=== PATIENT | female | born 1950 | race Two or more races ===

== ENCOUNTER 2021-03-24 18:32 | Emergency (ER) | payer OTHER ==
[2021-03-24 20:50] LABS: Absolute Lymphocytes (CBC) 1.1 K/uL (0.7-4.9); Hematocrit 42.6 % (36.0-45.0); Lymphocytes % 31.6 % (15.3-44.8); MPV 6.7 fL (7.6-11.3)
[2021-03-24 21:15] LABS: ALT/SGPT 23 U/L (12-78); AST/SGOT 22 U/L (15-37); Albumin 3.6 g/dL (3.4-5.0); Alkaline Phosphatase 68 U/L (45-117); BUN Blood Urea Nitrogen 12 mg/dL (7-18); Bicarbonate 27 mmol/L (21-32); Bilirubin Direct < 0.1 mg/dL (0-0.2); Bilirubin Total 0.4 mg/dL (0.2-1.0); Glucose Level 123 mg/dL (74-106); Lipase 87 U/L (73-393); Potassium 3.5 mmol/L (3.5-5.1); Protein, Total 8.4 g/dL (6.4-8.2); Sodium Level 130 mmol/L (136-145)
[2021-03-25] MEDS ORDERED: NA CHLORIDE 0.9% 500 ML ONE (00:35)
[2021-03-25] MEDS ORDERED: ONDANSETRON 4 MG/2 ML VIAL ONE (00:35)
--- NOTE | 2021-03-25 01:42 | EDPHYS ---
Physician Documentation [facility] Name: Patricia Butler Age: 70 yrs Sex: Female : 1950 Arrival Date: 03/24/2021 Time: 18:37 Bed 9 Private MD: Laura Petersen H ED Physician Ashkan Valentine HPI: 03/25 01:03 This 70 yrs old Female presents to ER via Ambulatory with complaints of Vomiting, Mouth kb Problem. 01:03 The patient presents to the emergency department with nausea, vomiting. Onset: The kb symptoms/episode began/occurred 3 day(s) ago. Possible causes: unknown. The symptoms are aggravated by nothing. The symptoms are alleviated by nothing. Associated signs and symptoms: Pertinent positives: fever, nausea, vomiting. Severity of symptoms: At their worst the symptoms were moderate in the emergency department the symptoms are unchanged. The patient has not experienced similar symptoms in the past. The patient has not recently seen a physician. Pt reports nausea, vomiting, cough, congestion, fever and malaise for 3 days. Historical: - Allergies: 03/24 18:50 No Known Allergies; eo2 - Home Meds: 18:50 amlodipine 10 mg tab 1 tab once daily [Active]; cetirizine 10 mg Oral tab 1 tab once eo2 daily [Active]; losartan-hydrochlorothiazide 50-12.5 mg Oral tab 1 tab once daily [Active]; simvastatin 20 mg Oral tab 1 tab once daily [Active]; - PMHx: 18:50 Hypertensive disorder; high cholesterol; seasonal allergies; eo2 - Immunization history:: Adult Immunizations up to date, Client reports receiving the 2nd dose of the Covid vaccine, Flu vaccine is up to date. - Social history:: Smoking status: Patient denies any tobacco usage or history of. ROS: 03/25 01:02 Cardiovascular: Negative for chest pain, palpitations, and edema. kb Constitutional: Positive for fever, malaise. ENT: Positive for rhinorrhea, sinus congestion. Respiratory: Positive for cough, Negative for dyspnea on exertion, hemoptysis, orthopnea, pleurisy, shortness of breath, sputum production, wheezing. Abdomen/GI: Positive for nausea and vomiting. All other systems are negative. Exam: 01:02 Constitutional: This is a well developed, well nourished patient who is awake, alert, kb and in no acute distress. Head/Face: Normocephalic, atraumatic. ENT: Moist Mucous membranes Cardiovascular: Regular rate and rhythm with a normal S1 and S2. No gallops, murmurs, or rubs. No pulse deficits. Respiratory: Respirations even and unlabored. No increased work of breathing. Talking in full sentences Abdomen/GI: Soft, non-tender. No distention Skin: Warm, dry with normal turgor. Normal color. MS/ Extremity: Pulses equal, no cyanosis. Neurovascular intact. Full, normal range of motion. Neuro: Awake and alert, GCS 15, oriented to person, place, time, and situation. Moves all extremities. Normal gait. Psych: Awake, alert, with orientation to person, place and time. Behavior, mood, and affect are within normal limits. Vital Signs: 03/24 18:43 BP 123 / 75; Pulse 66; Resp 17; Temp 99.4; Pulse Ox 98% on R/A; Weight 56.7 kg; Height eo2 4 ft. 9 in. (144.78 cm); Pain 01/01; 03/25 00:50 BP 129 / 87; Pulse 73; Resp 16 S; Temp 98.8(O); Pulse Ox 96% on R/A; bb 02:14 BP 113 / 70; Pulse 66; Resp 16; Pulse Ox 97% ; ds4 03/24 18:43 Body Mass Index 27.05 (56.70 kg, 144.78 cm) eo2 MDM: 00:10 Patient medically screened. kb 01:02 Data reviewed: vital signs, nurses notes. Data interpreted: Pulse oximetry: on room air kb is 98 %. Interpretation: normal. 01:41 Counseling: I had a detailed discussion with the patient and/or guardian regarding: the kb historical points, exam findings, and any diagnostic results supporting the discharge/admit diagnosis, lab results, the need for outpatient follow up, a family practitioner, to return to the emergency department if symptoms worsen or persist or if there are any questions or concerns that arise at home. 03/24 19:00 Order name: Basic Metabolic Panel; Complete Time: 23:56 eo2 03/24 19:00 Order name: CBC with Diff; Complete Time: 23:56 eo2 03/24 19:00 Order name: Hepatic Function; Complete Time: 23:56 eo2 03/24 19:00 Order name: Lipase; Complete Time: 23:56 eo2 03/25 00:42 Order name: COVID-19 SARS RT PCR (Document "Date of Onset" if Symptomatic) kb 03/25 00:42 Order name: SARS-COV-2 RT PCR; Complete Time: 01:42 EDNJ 03/24 19:00 Order name: IV Saline Lock; Complete Time: 19:10 eo2 03/24 19:00 Order name: Labs collected and sent; Complete Time: 19:10 eo2 03/24 23:57 Order name: PO challenge kb Administered Medications: 00:50 Drug: NS 0.9% 500 ml Route: IV; Rate: bolus; Site: left antecubital; bb 02:00 Follow up: IV Status: Completed infusion; IV Intake: 500ml bb 00:50 Drug: Zofran (Ondansetron) 4 mg Route: IVP; Site: left antecubital; bb 02:00 Follow up: Response: No adverse reaction bb Disposition: 06:42 Co-signature as Attending Physician, Ashkan Valentine MD. [facility] Disposition Summary: 03/25/21 01:41 Discharge Ordered Location: Home kb Condition: Stable kb Diagnosis - Coronavirus infection, unspecified kb Followup: kb - With: Emergency Department - When: As needed - Reason: Worsening of condition Followup: kb - With: Private Physician - When: 2 - 3 days - Reason: Recheck today's complaints, Continuance of care, Re-evaluation by your physician Discharge Instructions: - Discharge Summary Sheet kb - Viral Respiratory Infection, [id number] kb - COVID-19 kb Forms: - Medication Reconciliation Form kb - Thank You Letter kb - Antibiotic Education kb - Prescription Opioid Use kb Prescriptions: - Zofran 4 mg Oral Tablet - take 1 tablet by ORAL route every 6 hours As needed; 20 tablet; Refills: 0, kb Product Selection Permitted Signatures: Dispatcher [employer] Miriam Vazquez FNP-C FNP-Ckb Ballard, Brenda, RN RN Ashkan Irvin MD MD [facility] Vanita Cm RN RN eo2
--- NOTE | 2021-03-25 01:42 | ER ---
Nurse's Notes [facility] Name: Patricia Butler Age: 70 yrs Sex: Female : 1950 Arrival Date: 03/24/2021 Time: 18:37 Bed 9 Private MD: Laura Petersen H Diagnosis: Coronavirus infection, unspecified Presentation: 03/24 18:43 Chief complaint: Patient's son or daughter states: N/V X3 days, daughter states "eats eo2 and throws it up, she feels dizzy and doesn't sleep at all". Pt denies abdominal pain. Pt has also had cough, congestion, sore throat, and runny nose for 3 days. Pt reports generalized body aches, otherwise denies CP, SOB. Pt reports headache and dizziness. Pt reports her mouth feels sour causing decreased appetite, denies loss of taste. Coronavirus screen: Vaccine status: Patient reports receiving the 2nd dose of the covid vaccine. Client denies travel out of the [place] in the last 14 days. Ebola Screen: Patient negative for fever greater than or equal to 101.5 degrees Fahrenheit, and additional compatible Ebola Virus Disease symptoms Patient denies exposure to infectious person. Patient denies travel to an Ebola-affected area in the 21 days before illness onset. Initial Sepsis Screen: Does the patient meet any 2 criteria? No. Patient's initial sepsis screen is negative. Does the patient have a suspected source of infection? No. Patient's initial sepsis screen is negative. Risk Assessment: Do you want to hurt yourself or someone else? Patient reports no desire to harm self or others. Onset of symptoms is unknown. 18:43 Method Of Arrival: Ambulatory eo2 18:43 Acuity: ROXIE 3 eo2 Triage Assessment: 18:50 General: Appears in no apparent distress. weak and tired, ambulated to triage with slow eo2 steady gait. Behavior is calm, cooperative. Pain: Complains of pain in sore throat. Historical: - Allergies: 18:50 No Known Allergies; eo2 - Home Meds: 18:50 amlodipine 10 mg tab 1 tab once daily [Active]; cetirizine 10 mg Oral tab 1 tab once eo2 daily [Active]; losartan-hydrochlorothiazide 50-12.5 mg Oral tab 1 tab once daily [Active]; simvastatin 20 mg Oral tab 1 tab once daily [Active]; - PMHx: 18:50 Hypertensive disorder; high cholesterol; seasonal allergies; eo2 - Immunization history:: Adult Immunizations up to date, Client reports receiving the 2nd dose of the Covid vaccine, Flu vaccine is up to date. - Social history:: Smoking status: Patient denies any tobacco usage or history of. Screenin/01 00:30 Abuse screen: Denies threats or abuse. Nutritional screening: No deficits noted. bb Tuberculosis screening: No symptoms or risk factors identified. Fall Risk None identified. Assessment: 00:30 General: Appears in no apparent distress. Behavior is calm, cooperative. Neuro: Level bb of Consciousness is awake, alert, obeys commands, Oriented to person, place, time, situation. Cardiovascular: Capillary refill < 3 seconds Patient's skin is warm and dry. Respiratory: Respiratory effort is even, unlabored, Respiratory pattern is regular. GI: Abdomen is non-distended, Reports vomiting. Derm: Skin is pink, warm \\T\\ dry. Musculoskeletal: Circulation, motion, and sensation intact. 02:15 Reassessment: Patient is alert, oriented x 3, equal unlabored respirations, skin bb warm/dry/pink. pt and daughter verbalized understanding of and agree to plan of care discharge instructions given pt ambulated with steady gait to exit accompanied by family. Vital Signs: 03/24 18:43 BP 123 / 75; Pulse 66; Resp 17; Temp 99.4; Pulse Ox 98% on R/A; Weight 56.7 kg; Height eo2 4 ft. 9 in. (144.78 cm); Pain 01/01; 03/25 00:50 BP 129 / 87; Pulse 73; Resp 16 S; Temp 98.8(O); Pulse Ox 96% on R/A; bb 02:14 BP 113 / 70; Pulse 66; Resp 16; Pulse Ox 97% ; ds4 03/24 18:43 Body Mass Index 27.05 (56.70 kg, 144.78 cm) eo2 ED Course: 03/24 18:37 Patient arrived in ED. mr 18:38 Laura Petersen DO is Private Physician. mr 18:50 Triage completed. eo2 19:10 Basic Metabolic Panel Sent. eo2 19:11 CBC with Diff Sent. eo2 19:11 Hepatic Function Sent. eo2 19:11 Lipase Sent. eo2 19:11 Inserted saline lock: 20 gauge in left antecubital area, using aseptic technique. Blood eo2 collected. 03/25 00:10 Miriam Nelson FNP-C is PHCP. kb 00:10 Ashkan Valentine MD is Attending Physician. kb 00:30 No provider procedures requiring assistance completed. bb 00:30 Patient has correct armband on for positive identification. Bed in low position. Call bb light in reach. Adult w/ patient. Pulse ox on. NIBP on. 01:34 COVID-19 SARS RT PCR (Document "Date of Onset" if Symptomatic) Sent. bb 02:15 IV discontinued, intact, bleeding controlled, No redness/swelling at site. Pressure bb dressing applied. Administered Medications: 00:50 Drug: NS 0.9% 500 ml Route: IV; Rate: bolus; Site: left antecubital; bb 02:00 Follow up: IV Status: Completed infusion; IV Intake: 500ml bb 00:50 Drug: Zofran (Ondansetron) 4 mg Route: IVP; Site: left antecubital; bb 02:00 Follow up: Response: No adverse reaction bb Intake: 02:00 IV: 500ml; Total: 500ml. bb Outcome: 01:41 Discharge ordered by . kb 02:15 Discharged to home bb 02:15 Condition: stable 02:15 Discharge instructions given to patient, family, Instructed on discharge instructions, follow up and referral plans. medication usage, Demonstrated understanding of instructions, follow-up care, medications, Prescriptions given X 1. 02:16 Patient left the ED. bb Signatures: Miriam Nelson FNP-C FNP-Samreen Tasneem WuPurnima, RN RN bb Sebastian Kennedy ds4 Vanita Cm, BHARATHI RN eo2 Corrections: (The following items were deleted from the chart) 03/24 18:54 18:43 Chief complaint: Patient's son or daughter states: N/V X3 days, daughter states eo2 "eats and throws it up, she feels dizzy and doesn't sleep at all". Pt denies abdominal pain. Pt has also had cough, congestion, sore throat, and runny nose for 3 days. Pt reports generalized body aches, otherwise denies CP, SOB. Pt denies headache but reports dizziness, does not feel like the room is spinning. eo2 18:56 18:43 Chief complaint: Patient's son or daughter states: N/V X3 days, daughter states eo2 "eats and throws it up, she feels dizzy and doesn't sleep at all". Pt denies abdominal pain. Pt has also had cough, congestion, sore throat, and runny nose for 3 days. Pt reports generalized body aches, otherwise denies CP, SOB. Pt reports headache and dizziness. eo2
[2021-03-25 02:21] VITALS: TEMP 99.4
[2021-03-25 02:22] VITALS: BP 113/70; O2SAT 97
== END 2021-03-25 02:16 | disposition home or self-care (01) ==
LOC: ER 18:32
DX: U07.1 COVID-19 (principal)
CPT/HCPCS: 96361; 85025; 80048; 36415; 80076; 83690; 96374; 99284; U0003; J7040; J2405

== ENCOUNTER 2024-12-10 18:49 | Emergency (ER) | payer OTHER, MEDICAID ==
[2024-12-10] MEDS ORDERED: ONDANSETRON 4 MG (ODT) TAB ONE (19:29)
[2024-12-10 20:12] LABS: Influenza A Ag Negative; Influenza B Ag Negative; SARS-CoV-2 Antigen Rapid Res Negative (Negative)
[2024-12-10 20:32] LABS: Sqamous Epithelial <5 /HPF (None Seen); Urine Culture Reflex Order NOT NEEDED; Urine Microscopic Reflex YN ORDER UMIC; Urine Yeast (Budding) Trace /HPF (None Seen)
[2024-12-10] MEDS ORDERED: NA CHLORIDE 0.9% 500 ML ONE (21:18)
[2024-12-10 21:52] LABS: Absolute Lymphocytes (CBC) 2.3 K/uL (0.7-4.9); Hematocrit 40.4 % (36.0-45.0); Hemoglobin 13.7 g/dL (12.0-15.0); MCH 31.0 pg (27.0-35.0); MCHC 34.0 g/dL (32.0-36.0); MCV 91.0 fL (80-100); MPV 6.3 fL (7.6-11.3); Nucleated RBC Absolute Count 0.0 (0-0); Nucleated Red Blood Cells % 0.1 % (0-0); RBC Red Blood Cell Count 4.43 M/uL (3.86-4.86); White Blood Count 4.60 thou/uL (4.3-10.9)
[2024-12-10 22:07] LABS: Anion Gap 7.5 mEq/L (5.0-15.0); BUN Blood Urea Nitrogen 11.0 mg/dL (7-18); Glucose Level 133.0 mg/dL (74-106); Potassium 3.5 mEq/L (3.5-5.1)
[2024-12-10 22:13] LABS: ALT/SGPT 25.0 U/L (13-56); AST/SGOT 20.0 U/L (15-37); Albumin 3.1 g/dL (3.4-5.0); Albumin/Globulin Ratio 0.8 (1.1-1.8); Alkaline Phosphatase 80.0 U/L (45-117); Bilirubin Indirect, Calculated 0.3 mg/dL (0.2-0.8); Globulin 3.9 g/dL (2.3-3.5); Lipase 37.0 U/L (13-75); Magnesium 2.3 mg/dL (1.6-2.4); NT PRO-BNP 70.0 pg/mL (<125); Troponin High Sensitivity 6.2 pg/mL (<58.9)
[2024-12-10 22:41] LABS: Differential Total Cells Count 100; Segmented Neutrophils 39 % (40-80)
[2024-12-10 22:42] LABS: Blood Morphology Comment NOT SEEN (NOT SEEN)
--- NOTE | 2024-12-10 23:38 | EDPHYS ---
Physician Documentation [facility] Name: Patricia Butler Age: 73 yrs Sex: Female : 1950 Arrival Date: 12/10/2024 Time: 18:49 Bed 14 Private MD: ALBERTO Physician Deniz White HPI: 12/10 19:25 This 73 yrs old [place] Female presents to ER via Ambulatory with complaints of cp Chills, Doesn't Feel Right. 19:25 The patient presents with sore throat. The patient describes throat pain as discomfort. cp Onset: The symptoms/episode began/occurred yesterday, and became worse today. Associated signs and symptoms: Pertinent positives: Chills, fatigue. Patient reports to daughter that she just does not feel well, not very specific but does complain of a sore throat and some back pain. No fevers measured, denies vomiting and/or diarrhea and no complaints of a cough. Historical: - Allergies: 19:04 No Known Allergies; dd2 - PMHx: 19:04 High Cholesterol; Hypertensive disorder; seasonal allergies; Osteoporosis; dd2 - PSHx: 19:04 None; dd2 - Immunization history:: Adult Immunizations unknown. - Infectious Disease History:: Denies. - Social history:: Smoking status: Patient denies any tobacco usage or history of. ROS: 19:30 Constitutional: Positive for chills, fatigue, malaise, Negative for fever, cp 19:30 Eyes: Negative for injury, pain, redness, and discharge, cp 19:30 Cardiovascular: Negative for chest pain, edema, palpitations, 19:30 Respiratory: Negative for cough, shortness of breath, wheezing, 19:30 Abdomen/GI: Positive for nausea, decreased appetite, Negative for abdominal pain, vomiting, diarrhea, constipation, 19:30 Back: Positive for pain at rest, 19:30 : Negative for hematuria, burning with urination, 19:30 Neuro: Negative for altered mental status, dizziness, headache, 19:30 All other systems are negative, Exam: 19:33 Constitutional: The patient appears in no acute distress, alert, awake, non-toxic, well cp developed, well nourished, 19:33 Head/Face: Normocephalic, atraumatic. cp 19:33 Eyes: Periorbital structures: appear normal, Conjunctiva: normal, no exudate, no injection, Sclera: no appreciated abnormality, Lids and lashes: appear normal, bilaterally, 19:33 ENT: External ear(s): are unremarkable, Nose: is normal, Mouth: Lips: moist, Oral mucosa: moist, Posterior pharynx: Airway: no evidence of obstruction, patent, Tonsils: no enlargement, no exudate, erythema, that is mild, exudate, is not appreciated, 19:33 Neck: ROM/movement: is normal, is supple, without pain, no range of motions limitations, no meningismus, 19:33 Chest/axilla: Inspection: normal, 19:33 Cardiovascular: Rate: normal, Rhythm: regular, Edema: is not appreciated, JVD: is not appreciated, 19:33 Respiratory: the patient does not display signs of respiratory distress, Respirations: normal, no use of accessory muscles, no retractions, labored breathing, is not present, Breath sounds: are clear throughout, no decreased breath sounds, no stridor, no wheezing, 19:33 Abdomen/GI: Inspection: abdomen appears normal, Palpation: abdomen is soft and non-tender, in all quadrants, 19:33 Back: pain, that is mild, ROM is normal, CVA tenderness, is absent, 19:33 Neuro: Orientation: to person, place \T\ time. Mentation: is normal, 21:57 ECG was reviewed by the Attending Physician. Vital Signs: 19:02 BP 124 / 83; Pulse 65; Resp 16; Temp 98.3(O); Pulse Ox 99% on R/A; Weight 49.9 kg; Pain dd2 4/10; 19:50 BP 123 / 81; Pulse 60; Resp 18 S; Pulse Ox 99% on R/A; ha1 22:07 BP 131 / 87; Pulse 56; Resp 31; Pulse Ox 100% on R/A; cc6 23:08 BP 119 / 78; Pulse 53; Resp 24; Pulse Ox 99% on R/A; cc6 19:02 Pain Scale: Adult dd2 MDM: 19:06 Medical Screening Exam initiated saima 23:38 Data reviewed: vital signs, nurses notes, lab test result(s), and as a result, I will cp discharge patient. 23:38 Differential diagnosis: group A strep tonsillitis, influenza, camron's angina, cp mononucleosis, peritonsillar abscess retropharyngeal abcess. I considered the following discharge prescriptions or medication management in the emergency department Medications were administered in the Emergency Department. See MAR. Care significantly affected by the following chronic conditions: Hypertension. Counseling: I had a detailed discussion with the patient and/or guardian regarding the historical points, exam findings, and any diagnostic results supporting the discharge/admit diagnosis, lab results, to return to the emergency department if symptoms worsen or persist or if there are any questions or concerns that arise at home. Response to treatment: the patient's symptoms have mildly improved after treatment, and as a result, I will discharge patient. 12/10 19:18 Order name: UA Rfx [place]co Cult if indicated; Complete Time: 21:07 12/10 23:14 Interpretation: Normal except: UESTR 25; BYST Trace. 12/10 19:19 Order name: Group A Streptococcus Rapid; Complete Time: 21:07 12/10 19:19 Order name: COVID-19 Ag + Flu A+B Ag; Complete Time: 21:07 12/10 23:14 Interpretation: Reviewed. 12/10 20:15 Order name: Throat Culture [facility] 12/10 21:04 Order name: Basic Metabolic Panel; Complete Time: 23:13 ha1 12/10 23:13 Interpretation: Normal except: NA 134; GLUC 133; GFR 66. 12/10 21:48 Order name: Lactate w/ 2H reflex if indic.; Complete Time: 23:13 EDIN 12/10 23:14 Interpretation: Reviewed. 12/10 21:49 Order name: Liver (Hepatic) Function; Complete Time: 23:13 EDIN 12/10 23:13 Interpretation: Normal except: ALB 3.1; GLOB 3.9; A/G 0.8. 12/10 21:49 Order name: Troponin High Sensitivity; Complete Time: 23:13 [facility] 12/10 21:49 Order name: NT PRO-BNP; Complete Time: 23:13 [facility] 12/10 21:49 Order name: Magnesium; Complete Time: 23:13 [facility] 12/10 21:49 Order name: Lipase; Complete Time: 23:13 [facility] 12/10 21:49 Order name: CBC with Automated Diff; Complete Time: 23:13 [facility] 12/10 23:13 Interpretation: Normal except: MPV 6.3; LYM% 50.2. cp 12/10 21:59 Order name: Manual Differential; Complete Time: 23:13 EDMS 12/10 23:14 Interpretation: Normal except: SEGS 39; LYM 47. cp 12/10 21:04 Order name: EKG; Complete Time: 21:04 [facility] 12/10 21:04 Order name: Cardiac monitoring; Complete Time: 21:27 [facility] 12/10 21:04 Order name: IV Saline Lock; Complete Time: 21:17 [facility] 12/10 21:04 Order name: Labs collected and sent; Complete Time: 21:17 [facility] 12/10 21:04 Order name: O2 Per Protocol; Complete Time: 21:17 [facility] 12/10 21:04 Order name: O2 Sat Monitoring; Complete Time: 21:17 [facility] 12/10 21:04 Order name: EKG - Nurse/Tech; Complete Time: 21:56 [facility] 12/10 23:15 Order name: PO challenge; Complete Time: 23:24 cp EC:57 Rate is 54 beats/min. Rhythm is regular. ND interval is prolonged at 210 msec. QRS cp interval is normal. QT interval is normal. Interpreted by me. Reviewed by me. Administered Medications: 19:52 Drug: Ondansetron PO 4 mg PO once Route: PO; ha1 20:30 Follow up: Response: No adverse reaction cc6 21:39 Drug: NS 0.9% IV 500 ml 500 ml IV at 1 bolus once; to be given as a bolus over 60 cc6 minutes Volume: 500 ml; Route: IV; Rate: 1 bolus; Site: right forearm; 23:00 Follow up: Response: No adverse reaction; IV Status: Completed infusion ha Disposition Summary: 12/10/24 23:38 Discharge Ordered Notes: Location: Home cp Problem: new cp Symptoms: have improved cp Condition: Stable cp Diagnosis - Acute pharyngitis, unspecified cp - Other malaise and fatigue cp Followup: cp - With: Private Physician - When: 2 - 3 days - Reason: Recheck today's complaints Discharge Instructions: - Discharge Summary Sheet cp - Pharyngitis cp - Sore Throat cp - Fatigue cp Forms: - Medication Reconciliation Form cp - Antibiotic Education cp - Prescription Opioid Use cp - Patient Portal Instructions cp - Leadership Thank You Letter cp Prescriptions: - Cephalexin 500 mg Oral Capsule - take 1 capsule ORAL route every 12 hours for 10 days; 20 capsule; Refills: 0, cp Product Selection Permitted - Zofran 4 mg Oral Tablet - take 1 tablet ORAL route every 12 hours As needed; 20 tablet; Refills: 0, cp Product Selection Permitted Addendum: 12/14/2024 11:33 Co-signature as Attending Physician, Deniz White MD I agree with the assessment and c syed plan of care. Signatures: Dispatcher [employer] EDIN Deniz White MD MD cha Page, Corey, PA-C PA-C Promise Mulligan, RN RN ha1 Payton Le RN RN cc6 FRANCISCO MOCTEZUMA RN RN dd2
--- NOTE | 2024-12-10 23:38 | ER ---
Nurse's Notes [facility] Name: Patricia Butler Age: 73 yrs Sex: Female : 1950 Arrival Date: 12/10/2024 Time: 18:49 Bed 14 Private MD: Diagnosis: Acute pharyngitis, unspecified;Other malaise and fatigue Presentation: 12/10 19:02 Chief complaint: Patient states: CHILLS, SORE THROAT, BACK PAIN X 1 DAY. Coronavirus dd2 screen: chills, muscle pain, sore throat. Ebola Screen: No symptoms or risks identified at this time. Initial Sepsis Screen: Does the patient meet any 2 criteria? No. Patient's initial sepsis screen is negative. Does the patient have a suspected source of infection? No. Patient's initial sepsis screen is negative. Risk Assessment: Do you want to hurt yourself or someone else? Patient reports no desire to harm self or others. Onset of symptoms was December 10, 2024. 19:02 Method Of Arrival: Ambulatory dd2 19:02 Acuity: ROXIE 3 dd2 Triage Assessment: 19:04 General: Appears in no apparent distress. uncomfortable, Behavior is calm, cooperative, dd2 appropriate for age. Pain: Complains of pain in low back area and throat. Historical: - Allergies: 19:04 No Known Allergies; dd2 - PMHx: 19:04 High Cholesterol; Hypertensive disorder; seasonal allergies; Osteoporosis; dd2 - PSHx: 19:04 None; dd2 - Immunization history:: Adult Immunizations unknown. - Infectious Disease History:: Denies. - Social history:: Smoking status: Patient denies any tobacco usage or history of. Screenin:00 [facility] ED Fall Risk Assessment (Adult) History of falling in the last 3 months, ha1 including since admission No falls in past 3 months (0 pts) Confusion or Disorientation No (0 pts) Intoxicated or Sedated No (0 pts) Impaired Gait Yes (1 pt) Mobility Assist Device Used Yes (1 pt) Altered Elimination No (0 pt) Score/Fall Risk Level 3 or more points = High Risk Oriented to surroundings, Maintained a safe environment, Educated pt \T\ family on fall prevention, incl call for assistance when getting out of bed, Hourly rounding (assess needs \T\ fall precautionary measures) done. Abuse screen: Denies threats or abuse. Denies injuries from another. Nutritional screening: No deficits noted. Tuberculosis screening: No symptoms or risk factors identified. Assessment: 19:35 General: Appears comfortable, Behavior is calm, cooperative. Pain: Complains of pain in ha1 back Pain does not radiate. Pain currently is 4 out of 10 on a pain scale. Quality of pain is described as aching, Pain began gradually, Aggravated by increased activity. 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 Cardiovascular: Capillary refill < 3 seconds Patient's skin is warm and dry. Respiratory: Airway is patent Respiratory effort is even, unlabored, Respiratory pattern is regular, symmetrical. GI: Abdomen is round non-distended, Reports nausea. : No signs and/or symptoms were reported regarding the genitourinary system. EENT: Reports sore throat . Derm: Skin is pink, warm \T\ dry. Musculoskeletal: Circulation, motion, and sensation intact. Range of motion: intact in all extremities. 20:30 Reassessment: Patient and/or family updated on plan of care and expected duration. Pain ha1 level reassessed. Patient is alert, oriented x 3, equal unlabored respirations, skin warm/dry/pink. 22:08 Reassessment: Patient and/or family updated on plan of care and expected duration. Pain cc6 level reassessed. Patient is alert, oriented x 3, equal unlabored respirations, skin warm/dry/pink. 23:08 Reassessment: Patient and/or family updated on plan of care and expected duration. Pain cc6 level reassessed. Patient is alert, oriented x 3, equal unlabored respirations, skin warm/dry/pink. Vital Signs: 19:02 BP 124 / 83; Pulse 65; Resp 16; Temp 98.3(O); Pulse Ox 99% on R/A; Weight 49.9 kg; Pain dd2 4/10; 19:50 BP 123 / 81; Pulse 60; Resp 18 S; Pulse Ox 99% on R/A; ha1 22:07 BP 131 / 87; Pulse 56; Resp 31; Pulse Ox 100% on R/A; cc6 23:08 BP 119 / 78; Pulse 53; Resp 24; Pulse Ox 99% on R/A; cc6 19:02 Pain Scale: Adult dd2 ED Course: 18:53 Patient arrived in ED. mr 18:53 Deniz Aguilar PA-C is PHCP. cp 18:53 Bonnie Fernando MD is Attending Physician. 19:04 Triage completed. dd2 19:04 Arm band placed on right wrist. dd2 19:06 Attending Physician role handed off by Bonnie Fernando MD [facility] 19:06 Deniz White MD is Attending Physician. [facility] 19:10 Payton Le, BHARATHI is Primary Nurse. cc6 19:30 Patient has correct armband on for positive identification. Bed in low position. Call ha1 light in reach. Side rails up X 1. Adult w/ patient. Client placed on continuous cardiac and pulse oximetry monitoring. NIBP monitoring applied. 19:35 Provided Education on: use of call light. cc6 19:52 COVID-19 Ag + Flu A+B Ag Sent. ha1 19:52 Group A Streptococcus Rapid Sent. ha1 21:39 Lipase Sent. cc6 21:39 Magnesium Sent. cc6 21:39 Lactate w/ 2H reflex if indic. Sent. cc6 21:39 CBC with Diff Sent. cc6 21:39 LFT's Sent. cc6 21:39 NT PRO-BNP Sent. cc6 21:39 Troponin HS Sent. cc6 21:39 Basic Metabolic Panel Sent. cc6 23:53 No provider procedures requiring assistance completed. IV discontinued, intact, cc6 bleeding controlled, No redness/swelling at site. Pressure dressing applied. Administered Medications: 19:52 Drug: Ondansetron PO 4 mg PO once Route: PO; ha1 20:30 Follow up: Response: No adverse reaction cc6 21:39 Drug: NS 0.9% IV 500 ml 500 ml IV at 1 bolus once; to be given as a bolus over 60 cc6 minutes Volume: 500 ml; Route: IV; Rate: 1 bolus; Site: right forearm; 23:00 Follow up: Response: No adverse reaction; IV Status: Completed infusion ha1 Medication: 20:22 VIS not applicable for this client. ha1 Outcome: 23:38 Discharge ordered by . cp 23:53 Discharged to home ambulatory, cc6 23:53 Condition: stable 23:53 Discharge instructions given to family, Instructed on discharge instructions, follow up and referral plans. medication usage, Demonstrated understanding of instructions, follow-up care, medications, Prescriptions given X 2, 23:55 Patient left the ED. cc6 Signatures: Deniz White MD MD cha Rivera, Mary, [facility] Geovany mr Deniz Aguilar, PA-C PAPromise Wong cp, RN RN ha1 Payton Le RN RN cc6 FRANCISCO MOCTEZUMA RN RN dd2
[2024-12-11 00:15] VITALS: TEMP 98.3
[2024-12-11 00:20] VITALS: BP 119/78; O2SAT 99
== END 2024-12-10 23:55 | disposition home or self-care (01) ==
LOC: ER 18:49
DX: J02.9 Acute pharyngitis, unspecified (principal); R53.81 Other malaise; R53.83 Other fatigue; R68.83 Chills (without fever); R11.0 Nausea; M54.9 Dorsalgia, unspecified; Z11.52 Encounter for screening for COVID-19
CPT/HCPCS: 93005; 87070; 85025; 81001; 80048; 36415; 83735; 80076; 83605; 84484; 83690; 83880; 96360; 99284; 87428; Q0162; J7040